=== PATIENT | male | born 1975 | race Caucasian/White ===

== ENCOUNTER 2018-07-19 08:04 | Outpatient (CLI) | payer OTHER ==
--- NOTE | 2018-07-19 10:07 | MRI ---
MRI RIGHT KNEE PERFORMED WITHOUT CONTRAST ENHANCEMENT: History: Right knee pain and swelling. FINDINGS: The anterior as well as posterior cruciate ligaments are intact. The medial and lateral menisci have a normal shape and appearance. Medial and lateral collateral ligaments and the iliotibial band regions appear unremarkable. The patellar articular cartilage is intact. Medial and lateral patellar retinaculum and quadriceps an d patellar tendons appear unremarkable. Some minimal tendinosis of the patellar tendon is seen. Some nonspecific edema change is seen in the subcutaneous tissue anterior to the patellar tendon. A small Benz's cyst is seen. IMPRESSION: 1. Minimal patellar tendinosis. 2. Small Benz's cyst. 3. No evidence of cruciate ligament or meniscal injury. POS: C
== END 2018-07-19 08:05 | disposition home or self-care (01) ==
LOC: BICMRI 08:04
PROVIDERS: ATTEND Nurse Practitioner Family
DX: S89.91XD Unspecified injury of right lower leg, subsequent encounter (principal); M71.21 Synovial cyst of popliteal space [Baker], right knee

== ENCOUNTER 2018-10-16 17:24 | Observation (INO) | payer OTHER ==
[2018-10-16 17:50] LABS: #Basophils 0.1 thou/uL (0.0-0.2); #Lymphocytes 1.9 thou/uL (1.20-3.40); #Monocytes 0.8 thou/uL (0.11-0.59); #Neutrophils 4.2 thou/uL (1.40-6.50); %Basophils 1.5 % (0.0-1.0); %Eosinophils 12.4 % (0.0-10.0); %Lymphocytes 24.2 % (21.0-51.0); %Monocytes 10.2 % (0.0-10.0); %Neutrophils 51.7 % (42.0-75.0); Hemoglobin 14.1 g/dL (14.0-18.0); Mean Corpuscular HGB CONC 33.4 g/dL (32.0-36.0); Mean Corpuscular Hemoglobin 30.1 pg (27.0-31.0); Mean Corpuscular Volume 90.2 fL (78.0-98.0); Mean Platelet Volume 8.5 fL (7.4-10.4); Platelet Count 189 thou/uL (130-400); RBC Distribution Width 11.8 % (11.5-14.5); Red Blood Cell (RBC) Count 4.68 mill/uL (4.70-6.10)
--- NOTE | 2018-10-16 18:22 | RAD ---
FEXAM: Portable chest PROVIDED CLINICAL HISTORY: Chest pain COMPARISON: None FINDINGS: Cardiac and mediastinal silhouette is within normal limits. No focal consolidation, pleural fluid or pneumothorax evident. IMPRESSION: No evidence for an acute cardiopulmonary process.
[2018-10-16 18:26] LABS: ALT (SGPT) 30 U/L (8-55); AST (SGOT) 20 U/L (5-34); Albumin 3.9 g/dL (3.5-5.0); Alkaline Phosphatase 87 U/L (40-150); Anion Gap 12 mmol/L (10-20); BUN (Urea Nitrogen) 10 mg/dL (8.9-20.6); Bilirubin, Total 0.6 mg/dL (0.2-1.2); CK (CPK) 271 U/L (30-200); Calc. Creatinine Clearance 0 mL/min (70-130); Calcium 8.4 mg/dL (7.8-10.44); Carbon Dioxide 23 mmol/L (22-29); Chloride 107 mmol/L (98-107); Estimated GFR-MDRD Greater than 90; Globulin 2.7 g/dL (2.4-3.5); Glucose 105 mg/dL (70-105); Lipase 58 U/L (8-78); Potassium 3.1 mmol/L (3.5-5.1); Protein, Total 6.6 g/dL (6.0-8.3); Sodium 139 mmol/L (136-145)
[2018-10-16] MEDS ORDERED: Potassium Chloride 20 MEQ TAB ONE (18:39)
[2018-10-16 21:07] LABS: Troponin I Less than 0.010 ng/mL (< 0.028)
[2018-10-16] MEDS ORDERED: Ondansetron PF 4 MG/2 ML Vial IVP PRN (21:37)
[2018-10-16] MEDS ORDERED: Acetaminophen 325 MG TAB PO PRN (21:37)
[2018-10-16] MEDS ORDERED: Ondansetron ODT 4 MG TAB PO PRN (21:37)
[2018-10-16] MEDS ORDERED: Acetaminophen 650 MG Suppository PR PRN (21:37)
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
[2018-10-16] MEDS ORDERED: Nicotine 14 MG PATCH TD SCH (21:45)
[2018-10-16] MEDS ORDERED: Potassium Chloride 20 MEQ TAB PO SCH (21:45)
[2018-10-16 21:56] VITALS: BMI 35.9
[2018-10-17 00:34] LABS: Troponin I Less than 0.010 ng/mL (< 0.028)
[2018-10-17 06:47] LABS: #Basophils 0.1 thou/uL (0.0-0.2); #Eosinphils 1.2 thou/uL (0.0-0.7); #Lymphocytes 2.1 thou/uL (1.20-3.40); #Monocytes 0.7 thou/uL (0.11-0.59); #Neutrophils 3.8 thou/uL (1.40-6.50); %Basophils 1.2 % (0.0-1.0); %Eosinophils 15.3 % (0.0-10.0); %Lymphocytes 26.7 % (21.0-51.0); %Neutrophils 47.8 % (42.0-75.0); Hemoglobin 14.4 g/dL (14.0-18.0); Mean Corpuscular HGB CONC 33.4 g/dL (32.0-36.0); Mean Corpuscular Hemoglobin 30.4 pg (27.0-31.0); Mean Platelet Volume 8.5 fL (7.4-10.4); Platelet Count 181 thou/uL (130-400); RBC Distribution Width 11.8 % (11.5-14.5); Red Blood Cell (RBC) Count 4.73 mill/uL (4.70-6.10)
[2018-10-17 07:05] LABS: Anion Gap 10 mmol/L (10-20); BUN (Urea Nitrogen) 7 mg/dL (8.9-20.6); CK (CPK) 215 U/L (30-200); Calc. Creatinine Clearance 223 mL/min (70-130); Calcium 8.5 mg/dL (7.8-10.44); Carbon Dioxide 25 mmol/L (22-29); Chloride 108 mmol/L (98-107); Cholesterol 166 mg/dl (< 200 Desired); Estimated GFR-MDRD Greater than 90; Glucose 90 mg/dL (70-105); HDL Cholesterol 33 mg/dL (>60 Neg Risk); LDL Cholesterol, Calculated 112 mg/dL; Potassium 3.9 mmol/L (3.5-5.1); Sodium 139 mmol/L (136-145); Triglycerides 103 mg/dL (Less than 150)
[2018-10-17] MEDS ORDERED: Famotidine/PF 20 mg/2ml Vial SLOW IVP SCH (09:00)
[2018-10-17] MEDS ORDERED: Enoxaparin Sodium 40 MG/0.4 ML SYRINGE SC SCH (09:00)
[2018-10-17 13:22] VITALS: BP 121/63; TEMP 98.7
--- NOTE | 2018-10-17 13:36 | NM ---
FNM Cardiac Stress W EF WF History: [Chest pain] Comparison: None Findings: Stress and rest performed after the intravenous administration of 29 and 9.5 mCi technetium 99m sestamibi, respectively there is adequate left ventricular uptake of radiotracer. Ejection fraction is low at 51%. No scar or ischemia. Impression: No scar or ischemia.
== END 2018-10-17 14:24 | disposition home or self-care (01) ==
LOC: ERS 17:24 → MERGE 17:24 → 2SW 18:30
PROVIDERS: ADMIT Internal Medicine; ATTEND Internal Medicine
DX: R07.2 Precordial pain (principal); I10 Essential (primary) hypertension; E66.9 Obesity, unspecified; Z68.35 Body mass index [BMI] 35.0-35.9, adult; F17.290 Nicotine dependence, other tobacco product, uncomplicated; Z88.8 Allergy status to other drugs, medicaments and biological substances; Z79.899 Other long term (current) drug therapy; Z98.890 Other specified postprocedural states
CPT/HCPCS: 36415; 71045; 78452; 80048; 80053; 80061; 82550; 83690; 83735; 83880; 84443; 84484; 85025; 85379; 93005; 93017; 96360; 96361; 96374; 96375; A9500; G0378; J1650; S0028

== ENCOUNTER 2019-06-24 17:30 | Outpatient (CLI) | payer OTHER | END 2019-06-24 17:31 | disposition home or self-care (01) | LOC: SLEEPLAB 17:30 | PROVIDERS: ATTEND Family Medicine | DX: G47.33 Obstructive sleep apnea (adult) (pediatric) (principal); G47.9 Sleep disorder, unspecified; R53.83 Other fatigue; R06.83 Snoring; E66.9 Obesity, unspecified; I10 Essential (primary) hypertension; F41.9 Anxiety disorder, unspecified; G47.00 Insomnia, unspecified | CPT/HCPCS: 95806 ==

== ENCOUNTER 2019-07-01 20:30 | Outpatient (CLI) | payer OTHER | END 2019-07-01 20:31 | disposition home or self-care (01) | LOC: SLEEPLAB 20:30 | PROVIDERS: ATTEND Family Medicine | DX: G47.33 Obstructive sleep apnea (adult) (pediatric) (principal); F51.9 Sleep disorder not due to a substance or known physiological condition, unspecified; G47.9 Sleep disorder, unspecified; R53.83 Other fatigue; R06.83 Snoring; F41.9 Anxiety disorder, unspecified; G47.00 Insomnia, unspecified; I10 Essential (primary) hypertension; G47.10 Hypersomnia, unspecified; E66.9 Obesity, unspecified; Z68.37 Body mass index [BMI] 37.0-37.9, adult | CPT/HCPCS: 95811 ==

== ENCOUNTER 2021-04-18 15:44 | Emergency (ER) | payer OTHER | END 2021-04-18 16:50 | disposition home or self-care (01) | LOC: ERS 15:44 | DX: S90.32XA Contusion of left foot, initial encounter (principal); I10 Essential (primary) hypertension; F17.220 Nicotine dependence, chewing tobacco, uncomplicated; Z79.899 Other long term (current) drug therapy; W20.8XXA Other cause of strike by thrown, projected or falling object, initial encounter ==